=== PATIENT | male | born 1990 | race Caucasian/White ===

== ENCOUNTER → 2018-07-29 | Outpatient (REF) | payer BC ==
[2018-07-29 16:08] LABS: BASO % 0.5 % (0.0-1.0); EOS # 0.3 10^3/uL (0.0-0.50); EOS % 3.9 % (0.0-3.0); HEMOGLOBIN 15.2 g/dl (13.5-17.5); IMMATURE GRANULOCYTE % 0.3 % (0-3.0); LYMPH # 1.7 10^3/uL (1.5-6.5); LYMPH % 25.5 % (24.0-44.0); MEAN CORPUSCULAR HGB CONC 33.8 g/dl (32.0-36.5); MEAN CORPUSCULAR VOLUME 91.6 fl (80.0-96.0); MONO # 0.5 10^3/uL (0.0-0.8); MONO % 6.9 % (0.0-5.0); NEUTROPHILS # 4.2 10^3/uL (1.8-7.7); NEUTROPHILS % 62.9 % (36.0-66.0); PLATELET COUNT, AUTOMATED 198 10^3/uL (150-450); RED BLOOD COUNT 4.91 10^6/uL (4.30-6.10); RED CELL DISTRIBUTION WIDTH 12.1 % (11.5-14.5); WHITE BLOOD COUNT 6.6 10^3/uL (4.0-10.0)
[2018-07-29 16:37] LABS: ERYTHROCYTE SEDIMENTATION RATE 5 mm/hr (0-15)
[2018-07-29 21:39] LABS: C REACTIVE PROTEIN QUANTITATIV < 0.30 MG/DL (0.00-0.30); RHEUMATOID FACTOR QUANT < 10.0 IU/ML (<15.0)
[2018-07-29 21:39] LABS: URIC ACID 6.4 MG/DL (3.5-7.2)
[2018-08-01 00:07] LABS: ANTINUCLEAR ANTIBODIES DIRECT Negative (Negative); Lyme Disease IgG/IgM Antibodie <0.91 ISR (0.00-0.90); Lyme Disease IgM Ab Quantitati <0.80 index (0.00-0.79)
== END ==
LOC: M LABDRAW1 15:42
DX: M25.571 Pain in right ankle and joints of right foot (principal)
CPT/HCPCS: 36415

== ENCOUNTER 2021-05-25 13:11 | Emergency (ER) | payer BC, OTHER ==
[~2021-05-25] VITALS: Ht 182.9 cm; Wt 135.0 kg
[2021-05-25] MEDS ORDERED: LIDOCAINE 1% MDV 20ML VIAL SC ONE (15:50)
--- NOTE | 2021-05-25 16:06 | REP ---
INDICATION: trauma COMPARISON: None. FINDINGS: There is no evidence of acute fracture, dislocation, or intrinsic bone disease. IMPRESSION: No fracture or dislocation. <Electronically signed by David Gibbs > 05/25/21 1131
[2021-05-25 16:38] VITALS: BP 148/88
== END 2021-05-25 16:39 | disposition home or self-care (01) ==
LOC: M ED 13:11
DX: S61.012A Laceration without foreign body of left thumb without damage to nail, initial encounter (principal); W26.8XXA Contact with other sharp object(s), not elsewhere classified, initial encounter; Y92.89 Other specified places as the place of occurrence of the external cause; Y93.89 Activity, other specified; Y99.8 Other external cause status

== ENCOUNTER 2024-09-05 07:14 | Emergency (ER) | payer OTHER ==
[~2024-09-05] VITALS: Ht 182.9 cm; Wt 132.4 kg
[2024-09-05 08:00] LABS: BASO % 0.5 % (0.0-1.0); EOS # 0.2 10^3/uL (0.0-0.5); EOS % 2.8 % (0.0-3.0); HEMATOCRIT 41.9 % (42.0-52.0); HEMOGLOBIN 14.6 g/dl (13.5-17.5); LYMPH # 1.7 10^3/uL (1.5-5.0); LYMPH % 28.6 % (24.0-44.0); MEAN CORPUSCULAR HEMOGLOBIN 31.2 pg (27.0-33.0); MEAN CORPUSCULAR HGB CONC 34.8 g/dl (32.0-36.5); MEAN CORPUSCULAR VOLUME 89.5 fl (80.0-96.0); MONO # 0.8 10^3/uL (0.0-0.8); MONO % 13.1 % (2.0-8.0); NEUTROPHILS # 3.3 10^3/uL (1.5-8.5); NEUTROPHILS % 54.8 % (36.0-66.0); PLATELET COUNT, AUTOMATED 226 10^3/uL (150-450); RED BLOOD COUNT 4.68 10^6/uL (4.30-6.10)
[2024-09-05 08:18] LABS: CK-MB VALUE MASS 1.4 NG/ML (<3.6)
[2024-09-05 08:20] LABS: CPK CREATINE PHOSPHOKINASE 391 U/L (46-171); MB/CK RELATIVE INDEX 0.35 (< OR =4)
[2024-09-05 08:21] LABS: ALBUMIN 4.4 G/DL (3.2-5.2); ALKALINE PHOSPHATASE 65 U/L (46-116); ALT/SGPT 108 U/L (7.0-40); AST/SGOT 43 U/L (<34); BILIRUBIN,DIRECT 0.2 MG/DL (<0.4); BILIRUBIN,TOTAL 0.8 MG/DL (0.3-1.2); BLOOD UREA NITROGEN 16 MG/DL (9-23); CALCIUM LEVEL 9.7 MG/DL (8.5-10.1); CARBON DIOXIDE LEVEL 26 MMOL/L (20-31); CHLORIDE LEVEL 110 MMOL/L (98-107); CREATININE FOR GFR 0.93 MG/DL (0.70-1.30); GLOMERULAR FILTRATION RATE > 60.0 (>60); GLUCOSE, FASTING 133 MG/DL (60-100); POTASSIUM SERUM 3.7 MMOL/L (3.5-5.1); SODIUM LEVEL 140 MMOL/L (136-145); TOTAL PROTEIN 7.9 G/DL (5.7-8.2)
[2024-09-05 08:22] LABS: THYROID STIMULATING HORMONE 1.733 uIU/ML (0.55-4.78)
[2024-09-05 08:23] LABS: FREE T4 1.55 NG/DL (0.89-1.76)
[2024-09-05 09:37] LABS: CK-MB VALUE MASS 1.2 NG/ML (<3.6)
[2024-09-05 09:38] LABS: MB/CK RELATIVE INDEX 0.31 (< OR =4)
[2024-09-05] MEDS ORDERED: ISOVUE-370 76% 100ML VIAL As Ordered ONE (09:38)
[2024-09-05 09:44] VITALS: BP 150/82
[2024-09-05] MEDS: ASPIRIN 81MG CHEW TABLET PO ONE (09:44)
[2024-09-05] MEDS: NITROGLYCERIN 0.4MG SUBL TABLET SL PRN (09:44)
[2024-09-05 11:20] LABS: CK-MB VALUE MASS 1.2 NG/ML (<3.6)
[2024-09-05 11:21] LABS: MB/CK RELATIVE INDEX 0.34 (< OR =4)
[2024-09-05 12:00] VITALS: BP 123/73; O2SAT 98
[2024-09-05 12:14] VITALS: TEMP 98.4
== END 2024-09-05 12:15 | disposition home or self-care (01) ==
LOC: M ED 07:14
DX: R07.9 Chest pain, unspecified (principal)
CPT/HCPCS: 36415; 71046; 71275; 80048; 80076; 82550; 82553; 84439; 84443; 84484; 85025; 93005; 93041; 94760; 99285; Q9967

== ENCOUNTER → 2024-10-21 | Outpatient (REF) | payer OTHER ==
[2024-10-21 14:25] LABS: ALBUMIN 4.2 G/DL (3.2-5.2); ALKALINE PHOSPHATASE 72 U/L (40-129); ALT/SGPT 82 U/L (7.0-40); AST/SGOT 43 U/L (<34); BILIRUBIN,TOTAL 0.8 MG/DL (0.3-1.2); BLOOD UREA NITROGEN 12 MG/DL (9-23); CALCIUM LEVEL 9.9 MG/DL (8.5-10.1); CARBON DIOXIDE LEVEL 26 MMOL/L (20-31); CHLORIDE LEVEL 106 MMOL/L (98-107); CHOLESTEROL LEVEL 245 MG/DL (<200); CHOLESTEROL RISK RATIO 4.56 (<5); CREATININE FOR GFR 0.79 MG/DL (0.70-1.30); GLOMERULAR FILTRATION RATE > 60.0 (>60); GLUCOSE, FASTING 113 MG/DL (60-100); HDL CHOLESTEROL 53.7 MG/DL (>40); LDL CHOLESTEROL 151.3 MG/DL (<100); NON-HDL-C 191.3 MG/DL; POTASSIUM SERUM 4.2 MMOL/L (3.5-5.1); SODIUM LEVEL 140 MMOL/L (136-145); TRIGLYCERIDES LEVEL 200 MG/DL (<150)
[2024-10-21 15:10] LABS: HEMOGLOBIN A1c 5.4 % (4.0-6.0)
== END ==
LOC: M SFHCADAM 10:35
PROVIDERS: ATTEND Physician Assistant Medical
DX: K21.9 Gastro-esophageal reflux disease without esophagitis (principal); K76.0 Fatty (change of) liver, not elsewhere classified; R73.01 Impaired fasting glucose

== ENCOUNTER → 2024-10-21 | Outpatient (CLI) | payer OTHER | LOC: M ADAMS 11:45 | PROVIDERS: ATTEND Physician Assistant Medical | DX: M54.2 Cervicalgia (principal) ==

== ENCOUNTER → 2024-10-22 | Outpatient (REF) | payer OTHER ==
[2024-10-22 19:20] LABS: HEPATITIS B SURFACE ANTIBODY POSITIVE (POSITIVE)
[2024-10-22 19:31] LABS: HEPATITIS B SURFACE ANTIGEN NEGATIVE (NEGATIVE)
[2024-10-22 19:52] LABS: HEPATITIS C VIRUS ABY INDEX < 0.02 INDEX (<0.8)
== END ==
LOC: M SFHCADAM 13:28
PROVIDERS: ATTEND Physician Assistant Medical
DX: K76.0 Fatty (change of) liver, not elsewhere classified (principal)

== ENCOUNTER → 2024-10-24 | Outpatient (CLI) | payer OTHER | LOC: M RAD 07:43 | PROVIDERS: ATTEND Physician Assistant Medical | DX: K76.0 Fatty (change of) liver, not elsewhere classified (principal) ==

== ENCOUNTER → 2025-09-02 | Outpatient (CLI) | payer OTHER | LOC: M RAD 16:57 | PROVIDERS: ATTEND Orthopaedic Surgery | DX: M54.2 Cervicalgia (principal) ==

== ENCOUNTER → 2025-09-09 | Outpatient (REF) | payer OTHER ==
[~2025-09-09] MED LIST: ACET32TAB PO; HOLTER MONITOR XX; IBUP200T46 PO; MECL-136 PO
[2025-09-09 14:08] LABS: IRON (FE) 131 UG/DL (65-175)
[2025-09-09 14:09] LABS: BASO # 0.0 10^3/uL (0.0-0.2); BASO % 0.5 % (0.0-1.0); EOS # 0.3 10^3/uL (0.0-0.5); EOS % 4.4 % (0.0-3.0); LYMPH # 1.9 10^3/uL (1.5-5.0); LYMPH % 30.2 % (24.0-44.0); MONO # 0.5 10^3/uL (0.0-0.8); MONO % 7.5 % (2.0-8.0); NEUTROPHILS # 3.5 10^3/uL (1.5-8.5); NEUTROPHILS % 57.1 % (36.0-66.0); PLATELET COUNT, AUTOMATED 218 10^3/uL (150-450)
[2025-09-09 14:10] LABS: C REACTIVE PROTEIN QUANTITATIV < 0.50 MG/DL (<1.0); PERCENT SATURATION 38.3 % (19.7-50.0)
[2025-09-09 14:16] LABS: VITAMIN B12 LEVEL 425 PG/ML (211-911)
== END ==
LOC: M SFHCADAM 07:59
PROVIDERS: ATTEND Physician Assistant Medical
DX: R93.89 Abnormal findings on diagnostic imaging of other specified body structures (principal); R93.7 Abnormal findings on diagnostic imaging of other parts of musculoskeletal system

== ENCOUNTER → 2025-09-10 | Outpatient (CLI) | payer OTHER | LOC: M RAD 07:02 | PROVIDERS: ATTEND Physician Assistant Medical | DX: R42 Dizziness and giddiness (principal); H55.00 Unspecified nystagmus ==

== ENCOUNTER 2025-09-15 09:49 | Observation (INO) | payer OTHER ==
[~2025-09-15] VITALS: Ht 182.9 cm; Wt 138.0 kg
[2025-09-15] MEDS: MECLIZINE 25 MG TABLET PO ONE (12:09)
[2025-09-15] MEDS: ACETAMINOPHEN 500 MG TAB PO ONE (12:10)
[2025-09-15] MEDS: NS (Normal Saline) 0.9% 1,000 ML IV ONE (14:23)
[2025-09-15 14:34] LABS: BASO # 0.0 10^3/uL (0.0-0.2); BASO % 0.3 % (0.0-1.0); EOS # 0.1 10^3/uL (0.0-0.5); EOS % 1.0 % (0.0-3.0); LYMPH # 1.9 10^3/uL (1.5-5.0); LYMPH % 27.0 % (24.0-44.0); MONO # 0.5 10^3/uL (0.0-0.8); MONO % 6.8 % (2.0-8.0); NEUTROPHILS # 4.5 10^3/uL (1.5-8.5); NEUTROPHILS % 64.8 % (36.0-66.0); PLATELET COUNT, AUTOMATED 218 10^3/uL (150-450)
[2025-09-15 14:55] LABS: CALCIUM LEVEL 9.9 MG/DL (8.5-10.1); CARBON DIOXIDE LEVEL 22 MMOL/L (20-31); CHLORIDE LEVEL 108 MMOL/L (98-107); CREATININE FOR GFR 0.88 MG/DL (0.70-1.30); GLOMERULAR FILTRATION RATE > 90.0 (>60); POTASSIUM SERUM 3.9 MMOL/L (3.5-5.1); SODIUM LEVEL 143 MMOL/L (136-145)
[2025-09-15] MEDS ORDERED: HOLTER MONITOR XX ×2 (15:11→15:17)
[2025-09-15] MEDS: KETOROLAC 30 MG/ML 1 ML VIAL IV ONE (15:34)
[2025-09-15 18:08] LABS: CK-MB VALUE MASS < 1.0 NG/ML (<3.6); MAGNESIUM LEVEL 1.4 MG/DL (1.8-2.4)
[2025-09-15 18:37] LABS: CPK CREATINE PHOSPHOKINASE 140 U/L (46-171)
[2025-09-15] MEDS: MAG SULF 1GM/100ML (MAG RUN) 1 GM in IV 1 EA IV ONE (18:56)
[2025-09-15 20:02] LABS: CK-MB VALUE MASS < 1.0 NG/ML (<3.6)
[2025-09-15 20:06] LABS: CPK CREATINE PHOSPHOKINASE 169 U/L (46-171)
[2025-09-15] MEDS: ENOXAPARIN 40 MG/0.4 ML SYRINGE (J1650 PER 10MG) SC ONE (20:20)
[2025-09-15] MEDS ORDERED: IBUP200T46 PO (20:37)
[2025-09-15] MEDS ORDERED: HOME MED LIST COMPLETE! XX SCH (20:40)
[2025-09-15] MEDS: LIDOCAINE 5% PATCH TD ONE (21:36)
[2025-09-15 23:30] VITALS: BP 156/90; TEMP 97.4; O2SAT 99
[2025-09-16] MEDS: ACETAMINOPHEN 325 MG TAB PO PRN (00:08)
[2025-09-16] MEDS: FLUTICASONE PROPIONATE 0.05% NASAL SPRAY 16 GM NARES SCH (00:18)
[2025-09-16 04:32] VITALS: BP 128/87; TEMP 97.2; O2SAT 100
[2025-09-16 06:27] LABS: CALCIUM LEVEL 9.1 MG/DL (8.5-10.1); CARBON DIOXIDE LEVEL 25 MMOL/L (20-31); CHLORIDE LEVEL 109 MMOL/L (98-107); CREATININE FOR GFR 0.87 MG/DL (0.70-1.30); GLOMERULAR FILTRATION RATE > 90.0 (>60); POTASSIUM SERUM 4.4 MMOL/L (3.5-5.1); SODIUM LEVEL 144 MMOL/L (136-145)
[2025-09-16 08:00] VITALS: TEMP 97.5; O2SAT 100
[2025-09-16] MEDS: CETIRIZINE 10 MG TAB PO SCH (09:50)
[2025-09-16 12:00] VITALS: BP 142/96; TEMP 97.8; O2SAT 99
[2025-09-16 12:35] LABS: CHOLESTEROL LEVEL 190 MG/DL (<200); CHOLESTEROL RISK RATIO 5.06 (<5); LDL CHOLESTEROL 118.9 MG/DL (<100); NON-HDL-C 152.5 MG/DL; TRIGLYCERIDES LEVEL 168 MG/DL (<150)
[2025-09-16 12:43] LABS: ESTIMATED AVERAGE GLUCOSE 114.0 MG/DL (60-110)
[2025-09-16] MEDS: MECLIZINE 12.5 MG TAB PO PRN (13:55)
[2025-09-16] MEDS: CYCLOBENZAPRINE 5 MG TABLET PO PRN (13:55)
[2025-09-16 16:00] VITALS: BP 142/88; TEMP 97.1; O2SAT 98
[2025-09-16] MEDS ORDERED: MECL-136 PO (16:54)
[2025-09-16] MEDS ORDERED: ACET32TAB PO (16:54)
== END 2025-09-16 17:35 | disposition home or self-care (01) ==
LOC: M ED 09:49 → EDBD 09:49 → M ED INP 09:50 → M MS4PR 23:36
PROVIDERS: ADMIT Student in an Organized Health Care Education/Training Program; ATTEND Student in an Organized Health Care Education/Training Program
DX: R55 Syncope and collapse (principal); R51.9 Headache, unspecified; I10 Essential (primary) hypertension; M54.9 Dorsalgia, unspecified; G89.29 Other chronic pain; Z80.3 Family history of malignant neoplasm of breast
CPT/HCPCS: 36415; 70450; 72125; 80048; 80061; 82550; 82553; 83036; 83735; 84443; 84484; 85025; 93005; 93306; 96361; 96365; 96375; 99285; J1885; J2765; J3475

== ENCOUNTER → 2025-09-16 | Outpatient (CLI) | payer OTHER | LOC: M EKG 17:38 | PROVIDERS: ATTEND Student in an Organized Health Care Education/Training Program | DX: R00.2 Palpitations (principal); Z53.9 Procedure and treatment not carried out, unspecified reason ==